=== PATIENT | male | born 1980 | race Caucasian/White ===

== ENCOUNTER 2017-03-28 12:30 | Outpatient (CLI) | payer MEDICAID | END 2017-03-28 12:31 | disposition home or self-care (01) | LOC: LAB 12:30 | PROVIDERS: ATTEND Pathology Blood Banking & Transfusion Medicine | DX: Z01.89 Encounter for other specified special examinations (principal) | CPT/HCPCS: 36415 ==

== ENCOUNTER 2017-09-30 21:42 | Emergency (ER) | payer MEDICAID ==
[2017-09-30] MEDS ORDERED: FAMOTIDINE 20 MG/50 ML 50 ML IV ONE (22:10)
[2017-09-30] MEDS ORDERED: SODIUM CHLORIDE 0.9% 1,000 ML IV ONE (22:10)
[2017-09-30 22:11] LABS: BASOPHILS % (AUTO) 0.5 %; HGB - HEMOGLOBIN 16.3 g/dL (14.0-18.0); LYMPHOCYTES # (AUTO) 1.7 10^3/uL (1.5-3.5); LYMPHOCYTES % (AUTO) 41.3 %; MEAN CORPUSCULAR HEMOGLOBIN 31.5 pg (27.0-31.0); MEAN CORPUSCULAR HGB CONC 33.3 g/dL (32.0-36.0); MEAN CORPUSCULAR VOLUME 94.4 fL (80.0-94.0); MEAN PLATELET VOLUME 7.7 fL (7.4-11.4); MONOCYTES # (AUTO) 0.3 10^3/uL (0.0-1.0); MONOCYTES % (AUTO) 8.7 %; NEUTROPHILS % (AUTO) 49.5 %; PLT - PLATELET COUNT 159 10^3/uL (130-450); RED BLOOD COUNT 5.18 10^6/uL (4.70-6.10); RED CELL DISTRIBUTION WIDTH 15.4 % (12.0-15.0)
[2017-09-30 22:24] LABS: INR 0.8 (0.8-1.2); PT - PROTHROMBIN TIME 9.6 secs (9.9-12.6)
[2017-09-30 22:29] LABS: ALBUMIN 4.2 g/dL (3.2-5.5); ALBUMIN/GLOBULIN RATIO 1.6 (1.0-2.2); BILIRUBIN,TOTAL 1.2 mg/dL (0.2-1.0); CALCIUM 8.3 mg/dL (8.5-10.3); CREATININE 0.9 mg/dL (0.6-1.2); TOTAL PROTEIN 6.8 g/dL (6.7-8.2)
--- NOTE | 2017-09-30 22:31 | ED Physician Documentation ---
PD HPI GI BLEED - Stated complaint Stated Complaint: MALE - Chief complaint Chief Complaint: Abd Pain - History obtained from History obtained from: Patient - History of Present Illness Timing - onset: Yesterday Timing - details: Gradual onset Associated symptoms: Hematemesis, Black/tarry stool Similar symptoms before: Has not had sx before - Additional information Additional information: c/o 1-2 days of blood in vomitus as well as black stools. he says he is starting to withdraw from alcohol; he is a heavy, regular drinker and cannot remember the last sober day he has had. says he has never had upper endoscopy. denies pain. Review of Systems Cardiac: reports: Reviewed and negative Respiratory: reports: Reviewed and negative GI: reports: Vomiting, Hematemesis, Bloody / black stool. denies: Abdominal Pain, Nausea PD PAST MEDICAL HISTORY - Past Medical History Past Medical History: Yes Psych: Anxiety, Panic attacks - Past Surgical History Past Surgical History: Yes General: Appendectomy Ortho: Other - Present Medications Home Medications: Ambulatory Orders Medication Instructions Recorded Confirmed Quetiapine Fumarate [Quetiapine 10/01/17 Fumarate] chlordiazePOXIDE [Librium] See Taper PO Q6H #15 capsule 10/01/17 traZODone [Desyrel] 100 mg PO DAILY 10/01/17 10/01/17 - Allergies Allergies/Adverse Reactions: Allergies Allergy/AdvReac Type Severity Reaction Status Date / Time No Known Drug Allergies Allergy Verified 09/30/17 21:49 - Social History Does the pt smoke?: Yes Smoking Status: Current every day smoker Does the pt drink ETOH?: Yes Does the pt have substance abuse?: Yes Substance Use and Type: Cocaine/Crack, Heroin - Immunizations Immunizations are current?: Yes - POLST Patient has POLST: No PD ED PE NORMAL - Vitals Vital signs reviewed: Yes - General General: Alert and oriented X 3, No acute distress, Well developed/nourished - HEENT HEENT: Moist mucous membranes - Cardiac Cardiac: RRR, No murmur - Respiratory Respiratory: No respiratory distress, Clear bilaterally - Abdomen Abdomen: Soft, Non tender - Derm Derm: Normal color, Warm and dry Results - Vitals Vitals: Vital Signs - 24 hr 09/30/17 09/30/17 10/01/17 21:44 23:31 00:42 Temperature 36.6 C Heart Rate 146 H 88 120 H Respiratory 28 H 18 18 Rate Blood Pressure 115/82 H 128/95 H O2 Saturation 99 97 10/01/17 07:46 Temperature 36.3 C L Heart Rate 102 H Respiratory 15 Rate Blood Pressure 112/83 H O2 Saturation 96 Oxygen O2 Source Room air - Labs Labs: Laboratory Tests 09/30/17 09/30/17 09/30/17 22:01 22:01 22:07 WBC 4.0 L RBC 5.18 Hgb 16.3 Hct 48.9 MCV 94.4 H MCH 31.5 H MCHC 33.3 RDW 15.4 H Plt Count 159 MPV 7.7 Neut # 2.0 Lymph # 1.7 [place] # 0.3 Eos # 0.0 Baso # 0.0 Absolute Nucleated RBC 0.00 Nucleated RBC % 0.1 PT 9.6 L INR 0.8 APTT 25.7 Sodium 137 Potassium 3.5 Chloride 95 L Carbon Dioxide 26 Anion Gap 16.0 H BUN 13 Creatinine 0.9 Estimated GFR (MDRD) 94 Glucose 191 H Calcium 8.3 L Total Bilirubin 1.2 H AST 360 H ALT 212 H Alkaline Phosphatase 121 Total Protein 6.8 Albumin 4.2 Globulin 2.6 Albumin/Globulin Ratio 1.6 Ethyl Alcohol 484.9 Blood Type Antibody Screen 09/30/17 22:20 WBC RBC Hgb Hct MCV MCH MCHC RDW Plt Count MPV Neut # Lymph # [place] # Eos # Baso # Absolute Nucleated RBC Nucleated RBC % PT INR APTT Sodium Potassium Chloride Carbon Dioxide Anion Gap BUN Creatinine Estimated GFR (MDRD) Glucose Calcium Total Bilirubin AST ALT Alkaline Phosphatase Total Protein Albumin Globulin Albumin/Globulin Ratio Ethyl Alcohol Blood Type A POSITIVE Antibody Screen NEGATIVE PD MEDICAL DECISION MAKING - ED course Complexity details: reviewed old records, reviewed results, re-evaluated patient , considered differential, d/w patient ED course: patient is awake and alert with mildly slurred speech on presentation despite etoh level of 485. He reports blood in vomitus and tar-like stool, although he had no episodes of emesis or bloody/black stool during ED stay. He seemed chiefly concerned regarding alcohol withdrawal. He was given IV fluids and repeat doses of ativan and then given dose of librium. Also given dose of gabapentin, as he says he takes this TID. The benzodiazepines effectively controlled his tremulousness (which was never more than mild during ED stay) as well as his anxiety. He was ambulating in ED without difficulty. He requested placement at rehab for alcoholism, and thus held until AM for SW consult. SW evaluated patient in AM and provided options for rehab. Departure - Departure Clinical Impression: Alcohol abuse, Alcohol withdrawal, Alcoholic gastritis Condition: Good Instructions: ED Withdrawal Alcohol, ED Gastritis Follow-Up: [facility] [Provider Group] [facility] [Provider Group] Prescriptions: chlordiazePOXIDE [Librium] See Taper PO Q6H #15 capsule
[2017-09-30] MEDS ORDERED: LORazepam 2 MG/ML VIAL IVP STA (23:21)
[2017-09-30] MEDS ORDERED: SODIUM CHLORIDE 0.9% 1,000 ML IV STA (23:52)
[2017-10-01] MEDS ORDERED: LORazepam 2 MG/ML VIAL IVP STA ×2 (00:21→02:59)
[2017-10-01] MEDS ORDERED: LORazepam 0.5 MG TABLET PO STA ×2 (03:02→12:33)
[2017-10-01] MEDS ORDERED: QUEtiapine 100 MG TABLET PO STA (03:12)
[2017-10-01] MEDS ORDERED: chlordiazePOXIDE 25 MG CAPSULE PO STA ×4 (03:44→14:31)
--- NOTE | 2017-10-01 12:53 | ED Physician Documentation ---
History of Present Illness - Stated complaint Stated Complaint: MALE - Chief complaint Chief Complaint: Abd Pain PD PAST MEDICAL HISTORY - Past Medical History Past Medical History: Yes Psych: Anxiety, Panic attacks - Past Surgical History Past Surgical History: Yes General: Appendectomy Ortho: Other - Present Medications Home Medications: Ambulatory Orders Medication Instructions Recorded Confirmed Quetiapine Fumarate [Quetiapine 10/01/17 Fumarate] Sucralfate 1 gm PO ACHS #120 tablet 10/01/17 chlordiazePOXIDE [Librium] See Taper PO Q6H #15 capsule 10/01/17 raNITIdine [Zantac] 150 mg PO BID #60 tablet 10/01/17 traZODone [Desyrel] 100 mg PO DAILY 10/01/17 10/01/17 - Allergies Allergies/Adverse Reactions: Allergies Allergy/AdvReac Type Severity Reaction Status Date / Time No Known Drug Allergies Allergy Verified 09/30/17 21:49 - Social History Does the pt smoke?: Yes Smoking Status: Current every day smoker Does the pt drink ETOH?: Yes Does the pt have substance abuse?: Yes Substance Use and Type: Cocaine/Crack, Heroin - Immunizations Immunizations are current?: Yes - POLST Patient has POLST: No Results - Vitals Vitals: Vital Signs - 24 hr 09/30/17 09/30/17 10/01/17 21:44 23:31 00:42 Temperature 36.6 C Heart Rate 146 H 88 120 H Respiratory 28 H 18 18 Rate Blood Pressure 115/82 H 128/95 H O2 Saturation 99 97 10/01/17 10/01/17 10/01/17 07:46 10:20 13:14 Temperature 36.3 C L 37.3 C 37.1 C Heart Rate 102 H 118 H 124 H Respiratory 15 16 20 Rate Blood Pressure 112/83 H 126/98 H 117/81 H O2 Saturation 96 99 97 Oxygen O2 Source Room air - Labs Labs: Laboratory Tests 09/30/17 09/30/17 09/30/17 22:01 22:01 22:07 WBC 4.0 L RBC 5.18 Hgb 16.3 Hct 48.9 MCV 94.4 H MCH 31.5 H MCHC 33.3 RDW 15.4 H Plt Count 159 MPV 7.7 Neut # 2.0 Lymph # 1.7 [place] # 0.3 Eos # 0.0 Baso # 0.0 Absolute Nucleated RBC 0.00 Nucleated RBC % 0.1 PT 9.6 L INR 0.8 APTT 25.7 Sodium 137 Potassium 3.5 Chloride 95 L Carbon Dioxide 26 Anion Gap 16.0 H BUN 13 Creatinine 0.9 Estimated GFR (MDRD) 94 Glucose 191 H Calcium 8.3 L Total Bilirubin 1.2 H AST 360 H ALT 212 H Alkaline Phosphatase 121 Total Protein 6.8 Albumin 4.2 Globulin 2.6 Albumin/Globulin Ratio 1.6 Ethyl Alcohol 484.9 Blood Type Antibody Screen 09/30/17 10/01/17 10/01/17 22:20 13:06 13:06 WBC RBC Hgb 13.7 L Hct MCV MCH MCHC RDW Plt Count MPV Neut # Lymph # [place] # Eos # Baso # Absolute Nucleated RBC Nucleated RBC % PT INR APTT Sodium Potassium Chloride Carbon Dioxide Anion Gap BUN Creatinine Estimated GFR (MDRD) Glucose Calcium Total Bilirubin AST ALT Alkaline Phosphatase Total Protein Albumin Globulin Albumin/Globulin Ratio Ethyl Alcohol 38.3 Blood Type A POSITIVE Antibody Screen NEGATIVE PD MEDICAL DECISION MAKING - ED course ED course: assumed care 930 AM pt seen last night by Dr Becker for EtOH intoxication and report of vomiting blood and black stool was evaluated and hemodynamically stable and felt to have alcoholic gastritis and was to be dced with referral for a scope - per Dr Becker no known hx varices pt wanted to be enrolled in detox so turned over to me pending SW assist place in detox while waiting on SW pt has become progressively more tremulous and required librium has secured a bed for pt but they request a rpt BA and more info re GIB - ordered a BA and rpt HGB BA down as expected hgb dropped as well so i did a rectal exam as that was not done earlier - explained to pt reason for exam and he agreed - brown stool only trace occult blood + QC passed - I talked with pt about need for endoscopy to eval for gastritis PUD and varices and he verbalizes an understanding will rx zantac and carafate as well [place] is dc home but really pt is going to detox by taxi arranged by Departure - Departure Disposition: 01 Home, Self Care Clinical Impression: Alcohol abuse Alcohol withdrawal Qualifiers: Complication of substance-induced condition: uncomplicated Qualified Code(s): F10.230 - Alcohol dependence with withdrawal, uncomplicated Alcoholic gastritis Qualifiers: Chronicity: acute Gastritis bleeding: presence of bleeding unspecified Qualified Code(s): K29.20 - Alcoholic gastritis without bleeding Condition: Good Instructions: ED Withdrawal Alcohol, ED Gastritis Follow-Up: [facility] [Provider Group] [facility] [Provider Group] Tyson Mckay MD [Provider Admit Priv/Credential] - Prescriptions: chlordiazePOXIDE [Librium] See Taper PO Q6H #15 capsule raNITIdine [Zantac] 150 mg PO BID #60 tablet Sucralfate 1 gm PO ACHS #120 tablet Comments: As we discussed you need to get a scope of your upper GI tract to see if you have varices or an ulcer - please call the surgical office to set this up when you get out of detox - avoid NSAIDs such as motrin and alcohol
[2017-10-01] MEDS ORDERED: ONDANSETRON ODT 4 MG TABLET TL STA (14:31)
[2017-10-01 15:11] VITALS: BP 108/88
== END 2017-10-01 15:27 | disposition home or self-care (01) ==
LOC: ED 21:42
DX: F10.239 Alcohol dependence with withdrawal, unspecified (principal); K29.20 Alcoholic gastritis without bleeding; Y90.8 Blood alcohol level of 240 mg/100 ml or more; F17.200 Nicotine dependence, unspecified, uncomplicated; R00.0 Tachycardia, unspecified; F41.9 Anxiety disorder, unspecified
CPT/HCPCS: 36415; 80053; 80320; 85018; 85025; 85610; 85730; 86850; 86900; 86901; 96361; 96365; 96375; 96376; 99284; A9270; J2060; Q0162

== ENCOUNTER 2018-12-24 15:28 | Emergency (ER) | payer MEDICAID ==
[2018-12-24 15:37] VITALS: BP 124/84
--- NOTE | 2018-12-24 16:04 | ED Physician Documentation ---
History of Present Illness - Stated complaint Stated Complaint: CHEST PX - Chief complaint Chief Complaint: Resp - Additonal information Additional information: This is a 38-year-old male with a history of hypertension, past substance abuse currently on methadone, who presents with chest pain. Patient states that he began having some right-sided upper chest pain 3 days ago, it is sharp and worse when he presses in the area of his chest. He has a chronic Cough that he attributes to smoking, no change to this. No hemoptysis, Leg swelling, history of blood clots. No history of CA, or other cardiac problems. He denies IV drug use, he states he has been clean from drugs for almost 1 year. Patient states his chest pain feels similar to pleurisy. He denies specific trauma to his chest preceding this pain. No fever. Review of Systems Constitutional: denies: Fever Cardiac: reports: Chest pain / pressure Respiratory: reports: Cough GI: denies: Abdominal Pain Skin: denies: Rash PD PAST MEDICAL HISTORY - Past Medical History Psych: Anxiety, Panic attacks - Past Surgical History Past Surgical History: Yes General: Appendectomy Ortho: Other - Present Medications Home Medications: Ambulatory Orders Medication Instructions Recorded Confirmed Quetiapine Fumarate 10/01/17 Sucralfate 1 gm PO ACHS #120 tablet 10/01/17 chlordiazePOXIDE [Librium] See Taper PO Q6H #15 capsule 10/01/17 raNITIdine [Zantac] 150 mg PO BID #60 tablet 10/01/17 traZODone [Desyrel] 100 mg PO DAILY 10/01/17 10/01/17 Acetaminophen 650 mg PO Q6HR #30 tablet 12/24/18 Ibuprofen 600 mg PO Q6H PRN #30 tablet 12/24/18 Methocarbamol [Robaxin-750] 750 mg PO TID PRN #10 tablet 12/24/18 - Allergies Allergies/Adverse Reactions: Allergies Allergy/AdvReac Type Severity Reaction Status Date / Time No Known Drug Allergies Allergy Verified 09/30/17 21:49 - Social History Does the pt smoke?: Yes Smoking Status: Current every day smoker Does the pt drink ETOH?: Yes Does the pt have substance abuse?: Yes - Immunizations Immunizations are current?: Yes - POLST Patient has POLST: No PD ED PE NORMAL - Vitals Vital signs reviewed: Yes - General General: Alert and oriented X 3, No acute distress - HEENT HEENT: Atraumatic - Neck Neck: Supple, no meningeal sign - Cardiac Cardiac: RRR, No murmur - Respiratory Respiratory: No respiratory distress, Clear bilaterally, Other (Focal area of tenderness over the right anterior chest. No rash overlying lesions) - Abdomen Abdomen: Soft, Non tender, Non distended - Derm Derm: Warm and dry - Extremities Extremities: No deformity - Neuro Neuro: Alert and oriented X 3 - Psych Psych: Normal mood, Normal affect Results - Vitals Vitals: Vital Signs - 24 hr 12/24/18 15:31 Temperature 36.6 C Heart Rate 57 L Respiratory 16 Rate Blood Pressure 124/84 H O2 Saturation 100 Oxygen O2 Source Room air - EKG (time done) 15:41 Other comments: Other comments (rate 58, rhythm sinus, no ST segment chagnes, intervals within normal limits., axis normal.) - Rads (name of study) CXR Radiology: Other (No focal consolidaiton or acute abnormality) PD MEDICAL DECISION MAKING - ED course Complexity details: considered differential (PE, PNA, pneumothorax, ACS, muscle strain) ED course: Pt has reproducible right sided chest tenderness, his EKG shows no signs of acute ischemia or dysrhytmia, and his history makes ACS extremely unlikely. PE was considered, I have a low clinical suspicion and he is PERC negative, no further workup for PE indicated today. CXR shows no acute abnormality. I discussed I do not see an emergent cause of his discomfort, he thinks this is musculoskeletal and I agree this is likely. We will treat with ibuprofen, tylenol, and he may trial methocarbamol if these medications are not sufficient. I did discuss the importance of PCP follow up and return to the ED with SOB, changing or worsening chest pain, or any other concerning symptoms. Pt agreed and was discharged. Departure - Departure Disposition: 01 Home, Self Care Clinical Impression: Chest pain Qualifiers: Chest pain type: unspecified Qualified Code(s): R07.9 - Chest pain, unspecified Condition: Good Instructions: ED Chest Pain Atypical Unkn Cause Follow-Up: Your,PCP [Other] Prescriptions: Acetaminophen 650 mg PO Q6HR #30 tablet Ibuprofen 600 mg PO Q6H PRN #30 tablet PRN Reason: Pain Methocarbamol [Robaxin-750] 750 mg PO TID PRN #10 tablet PRN Reason: Pain Comments: You were seen today for chest pain, I think this is likely due to strain/irritation of your chest wall, do not see signs of abnormalities onyour chest x-ray or your EKG. If you develop worsening chest pain, changing chest pain, shortness of breath, fever, or blood with your cough, return to the emergency department immediately. Please follow-up with your primary care provider. Discharge Date/Time: 12/24/18 17:14
--- NOTE | 2018-12-24 16:44 | XRAY Report ---
Reason: cough Procedure Date: 12/24/2018 Accession Number: [id number] / [id number] Procedure: XR - Chest 2 View X-Ray CPT Code: 60017 FULL RESULT: EXAM: CHEST RADIOGRAPHY EXAM DATE: 12/24/2018 04:36 PM. CLINICAL HISTORY: Cough. COMPARISON: CHEST 2 VIEW PA/LAT 04/04/2016 8:55 PM. TECHNIQUE: 2 views. FINDINGS: Lungs/Pleura: No focal opacities evident. No pleural effusion. No pneumothorax. Normal volumes. Mediastinum: Heart and mediastinal contours are unremarkable. Other: None. IMPRESSION: No focal consolidation. RADIA
== END 2018-12-24 17:14 | disposition home or self-care (01) ==
LOC: ED 15:28
DX: R07.9 Chest pain, unspecified (principal); F17.200 Nicotine dependence, unspecified, uncomplicated
CPT/HCPCS: 71046; 93005; 99283; 99284

== ENCOUNTER 2019-04-07 21:03 | Emergency (ER) | payer MEDICAID ==
--- NOTE | 2019-04-07 22:17 | XRAY Report ---
Reason: rapid heart rate Procedure Date: 04/07/2019 Accession Number: [id number] / [id number] Procedure: XR - Chest 1 View X-Ray CPT Code: 69061 Final Report FULL RESULT: EXAM: CHEST RADIOGRAPHY EXAM DATE: 04/07/2019 09:43 PM. CLINICAL HISTORY: Rapid heart rate. COMPARISON: CHEST 2 VIEW 12/24/2018 4:24 PM. TECHNIQUE: 1 view. FINDINGS: Lungs/Pleura: No alveolar consolidation or pleural effusion seen. No pneumothorax. Mediastinum: Within exam limitations, the cardiomediastinal contour is normal. Other: None. IMPRESSION: 1. No acute abnormality seen in the chest. RADIA
[2019-04-07 22:28] LABS: BASOPHILS % (AUTO) 0.3 %; EOSINOPHILS % (AUTO) 0.5 %; HGB - HEMOGLOBIN 12.8 g/dL (14.0-18.0); LYMPHOCYTES # (AUTO) 1.8 10^3/uL (1.5-3.5); LYMPHOCYTES % (AUTO) 28.1 %; MEAN CORPUSCULAR HEMOGLOBIN 30.4 pg (27.0-31.0); MEAN CORPUSCULAR HGB CONC 33.8 g/dL (32.0-36.0); MEAN PLATELET VOLUME 9.3 fL (7.4-11.4); MONOCYTES # (AUTO) 0.7 10^3/uL (0.0-1.0); MONOCYTES % (AUTO) 11.1 %; NEUTROPHILS # (AUTO) 3.8 10^3/uL (1.5-6.6); NEUTROPHILS % (AUTO) 59.5 %; PLT - PLATELET COUNT 278 10^3/uL (130-450); RED BLOOD COUNT 4.21 10^6/uL (4.70-6.10); RED CELL DISTRIBUTION WIDTH 14.5 % (12.0-15.0); WHITE BLOOD COUNT 6.4 x10^3/uL (4.8-10.8)
[2019-04-07 22:46] LABS: ALBUMIN 4.1 g/dL (3.2-5.5); ALBUMIN/GLOBULIN RATIO 1.4 (1.0-2.2); BILIRUBIN,TOTAL 0.7 mg/dL (0.2-1.0); CALCIUM 9.7 mg/dL (8.5-10.3); CREATININE 0.9 mg/dL (0.6-1.2)
[2019-04-08] MEDS ORDERED: CLINDAMYCIN 150 MG CAPSULE PO STA
[2019-04-08] MEDS ORDERED: SODIUM CHLORIDE 0.9% 1,000 ML IV ONE
[2019-04-08] MEDS ORDERED: METOPROLOL 5 MG/5 ML VIAL IVP STA
[2019-04-08] MEDS ORDERED: KETOROLAC 15 MG/ML VIAL IVP STA (00:01)
--- NOTE | 2019-04-08 00:35 | ED Physician Documentation ---
PD HPI HEENT - Stated complaint Stated Complaint: FAST HEART/GUM PX - Chief complaint Chief Complaint: Cardiac - History obtained from History obtained from: Patient - History of Present Illness Timing - onset: How many days ago (few) Timing - duration: Days (few) Timing - details: Gradual onset, Still present Location: Tooth (right upper gum with swelling and some purulent drainage for few days) Associated symptoms: No: Fever, Facial swelling, Cough Recently seen: Clinic (He was seen in the clinic today presenting with the complaint of the gum's drainage and pain. He was noted to be tachycardic and was referred to the ER for concern of sepsis or worse infection. He was afebrile. He did not appear ill. He had been seen about a week and a half ago for complaints of lightheadedness. He had been on propranolol 80 mg daily for high blood pressure. He states he had stopped drinking and had been eating well over the last few months. He had lost some weight as well. The propranolol was discontinued. The patient had noticed his heart rate a little bit faster at times when he was doing activity. It was more noticeable today when he went in to be seen at the clinic today.) Review of Systems Constitutional: denies: Fever, Chills, Myalgias Nose: denies: Rhinorrhea / runny nose, Congestion Throat: reports: Dental pain / toothache (right upper tooth with gum drainage, had had prior root canal to it but then did dnot get cap put on/ finish of the care due to cost.). denies: Sore throat Cardiac: denies: Chest pain / pressure, Palpitations Respiratory: denies: Dyspnea, Cough GI: denies: Abdominal Pain, Vomiting, Diarrhea Skin: denies: Rash, Lesions PD PAST MEDICAL HISTORY - Past Medical History Past Medical History: Yes Cardiovascular: None Respiratory: None Neuro: None Endocrine/Autoimmune: None GI: None : None Psych: Anxiety, Panic attacks - Past Surgical History Past Surgical History: Yes General: Appendectomy Ortho: Other - Present Medications Home Medications: Ambulatory Orders Medication Instructions Recorded Confirmed Quetiapine Fumarate 10/01/17 Sucralfate 1 gm PO ACHS #120 tablet 10/01/17 chlordiazePOXIDE [Librium] See Taper PO Q6H #15 capsule 10/01/17 raNITIdine [Zantac] 150 mg PO BID #60 tablet 10/01/17 traZODone [Desyrel] 100 mg PO DAILY 10/01/17 10/01/17 Acetaminophen 650 mg PO Q6HR #30 tablet 12/24/18 Ibuprofen 600 mg PO Q6H PRN #30 tablet 12/24/18 Methocarbamol [Robaxin-750] 750 mg PO TID PRN #10 tablet 12/24/18 Clindamycin HCl [Clindamycin 300MG 300 mg PO TID #21 capsule 04/08/19 CAP] Naproxen 375 mg PO BID #20 tablet 04/08/19 Propranolol HCl 10 mg PO DAILY #30 tablet 04/08/19 - Allergies Allergies/Adverse Reactions: Allergies Allergy/AdvReac Type Severity Reaction Status Date / Time No Known Drug Allergies Allergy Verified 04/07/19 21:27 - Living Situation Living Situation: reports: Alone Living Arrangement: reports: At home (He states he does drink a lot of energy drinks daily.) - Social History Does the pt smoke?: Yes Smoking Status: Current every day smoker Does the pt drink ETOH?: Yes ETOH Use: Wine, Beer, Liquor Does the pt have substance abuse?: No - Immunizations Immunizations are current?: Yes - POLST Patient has POLST: No PD ED PE NORMAL - Vitals Vital signs reviewed: Yes (Tachycardic but normal blood pressure and afebrile) - General General: Alert and oriented X 3, No acute distress, Well developed/nourished - HEENT HEENT: Ears normal, Moist mucous membranes, Pharynx benign. No: Dentition benign (The right upper tooth shows decay and a central hole consistent with prior root canal that was incomplete. There is some redness and swelling of the gum with pointing whiteness and mild drainage. There is no residual fluctuance. There is no redness nor swelling noted on the face per se.) - Neck Neck: Supple, no meningeal sign, No adenopathy - Cardiac Cardiac: No murmur, No rub. No: RRR (Regular but tachycardic and it slows down to 130 and then 110 with him just resting.) - Respiratory Respiratory: No respiratory distress, Clear bilaterally - Abdomen Abdomen: Soft, Non tender - Back Back: No CVA TTP - Derm Derm: Normal color, Warm and dry - Extremities Extremities: No tenderness to palpate, Normal ROM s pain, No edema, No calf tenderness / cord - Neuro Neuro: Alert and oriented X 3, No motor deficit, Normal speech Results - Vitals Vitals: Vital Signs - 24 hr 04/07/19 04/07/19 04/07/19 21:27 22:00 22:28 Temperature 37 C Heart Rate 155 H 126 H 120 H Respiratory 17 15 12 Rate Blood Pressure 117/84 H 120/94 H 110/83 H O2 Saturation 100 100 99 04/07/19 04/08/19 04/08/19 23:18 00:26 01:11 Temperature 36.8 C Heart Rate 102 H 85 84 Respiratory 12 23 18 Rate Blood Pressure 103/83 H 108/93 H 114/87 H O2 Saturation 97 100 100 Oxygen O2 Source Room air - Labs Labs: Laboratory Tests 04/07/19 04/07/19 04/07/19 21:35 22:01 22:01 WBC 6.4 RBC 4.21 L Hgb 12.8 L Hct 37.9 L MCV 90.0 MCH 30.4 MCHC 33.8 RDW 14.5 Plt Count 278 MPV 9.3 Neut # (Auto) 3.8 Lymph # (Auto) 1.8 [place] # (Auto) 0.7 Eos # (Auto) 0.0 Baso # (Auto) 0.0 Absolute Nucleated RBC 0.00 Nucleated RBC % 0.0 ESR 12 Sodium 140 Potassium 3.8 Chloride 106 Carbon Dioxide 25 Anion Gap 9.0 BUN 10 Creatinine 0.9 Estimated GFR (MDRD) 93 Glucose 136 H Lactic Acid Calcium 9.7 Total Bilirubin 0.7 AST 22 ALT 17 Alkaline Phosphatase 95 Total Protein 7.0 Albumin 4.1 Globulin 2.9 Albumin/Globulin Ratio 1.4 Lipase 46 04/07/19 23:35 WBC RBC Hgb Hct MCV MCH MCHC RDW Plt Count MPV Neut # (Auto) Lymph # (Auto) [place] # (Auto) Eos # (Auto) Baso # (Auto) Absolute Nucleated RBC Nucleated RBC % ESR Sodium Potassium Chloride Carbon Dioxide Anion Gap BUN Creatinine Estimated GFR (MDRD) Glucose Lactic Acid 0.7 Calcium Total Bilirubin AST ALT Alkaline Phosphatase Total Protein Albumin Globulin Albumin/Globulin Ratio Lipase PD MEDICAL DECISION MAKING - ED course Complexity details: considered differential (He looks well and has normal temperature and blood pressure and no blood markers to suggest sepsis or significant infection. Heart sounds are normal. I think his tachycardia is from the energy drinks he takes and having discontinued propranolol at the direction of his primary care a week and a half ago. There may be some elevation of heart rate related to the current infection and the discomfort of it.), d/w patient Departure - Departure Disposition: 01 Home, Self Care Clinical Impression: Dental infection, Tachycardia Condition: Stable Record reviewed to determine appropriate education?: Yes Instructions: ED Abscess Dental, ED Tachycardia Pat PSVT Prescriptions: Clindamycin HCl [Clindamycin 300MG CAP] 300 mg PO TID #21 capsule Naproxen 375 mg PO BID #20 tablet Propranolol HCl 10 mg PO DAILY #30 tablet Comments: Stay well-hydrated. Clindamycin as directed for the dental infection. Use some antiseptic mouth rinse periodically. You can use naproxen anti-inflammatory twice daily for pain and swelling. Your blood tests did not suggest serious infection. Your fast heart rate may be relate to hydration and could also be some response to infection. However it may also be augmented by the energy drinks with the caffeine in it. He may still have a bit of a fast heart rate response from being off the propranolol though this is probably a little bit longer than expected. You could resume the propranolol again but add a very low-dose of just 10 mg daily and continue that for the next couple of weeks. Follow-up with your primary care if your gum infection is not improved over the next several days or so. Discharge Date/Time: 04/08/19 01:14
[2019-04-08 01:13] VITALS: BP 114/87
== END 2019-04-08 01:14 | disposition home or self-care (01) ==
LOC: ED 21:03
DX: K04.7 Periapical abscess without sinus (principal); K02.9 Dental caries, unspecified; R00.0 Tachycardia, unspecified; F17.200 Nicotine dependence, unspecified, uncomplicated
CPT/HCPCS: 36415; 71045; 80053; 83605; 83690; 85025; 85651; 93005; 96361; 96374; 96375; 99284; A9270

== ENCOUNTER 2019-06-30 10:08 | Outpatient (CLI) | payer MEDICAID ==
--- NOTE | 2019-07-01 10:03 | XRAY Report ---
Reason: STIFFNESS OF UNSPECIFIED HAND Procedure Date: 06/30/2019 Accession Number: [id number] / [id number] Procedure: XR - Hand 3 View RT CPT Code: Final Report FULL RESULT: EXAM: RIGHT HAND RADIOGRAPHY EXAM DATE: 06/30/2019 10:48 AM. CLINICAL HISTORY: STIFFNESS OF RIGHT HAND. COMPARISON: None. TECHNIQUE: 3 views. FINDINGS: Bones: Normal. No fractures or bone lesions. Joints: Normal. No subluxations. Soft Tissues: Normal. No soft tissue swelling. IMPRESSION: Normal hand radiography. RADIA
== END 2019-06-30 10:09 | disposition home or self-care (01) ==
LOC: DI 10:08
DX: M25.641 Stiffness of right hand, not elsewhere classified (principal); M79.641 Pain in right hand

== ENCOUNTER 2019-11-03 19:31 | Emergency (ER) | payer MEDICAID ==
--- NOTE | 2019-11-03 20:07 | ED Physician Documentation ---
PD HPI OVERDOSE - Stated complaint Stated Complaint: OD - Chief complaint Chief Complaint: MHE - History obtained from History obtained from: Patient, Friend, EMS - History of Present Illness Timing - onset: Today Subtance(s) ingested: Other (The patient was found by his roommates to be somnolent and hard to arouse. They are concerned he had taken extra of his medicines. The patient stated to EMS and here that he had taken just his usual medications but had taken them all this afternoon and attempt to sleep. Denies overdose.) Associated symptoms: Decreased responsiveness. No: Chest pain, Abdominal pain, Dyspnea Contributing factors: Other (he had run out of his usual Flexeril 4 days ago, that he had been taking regularly for long time for spasms due to prior [place]. He had not gotten refill from PCP as yet.). No: Depresssed, Suicidal Similar symptoms before: Has not had sx before Recently seen: Not recently seen Review of Systems Constitutional: denies: Fever, Chills, Myalgias Nose: denies: Rhinorrhea / runny nose, Congestion Throat: denies: Sore throat Respiratory: denies: Cough GI: reports: Nausea. denies: Abdominal Pain, Vomiting, Diarrhea : denies: Dysuria Neurologic: reports: Other (feeling lightheaded and somewhat confused/sleepy today. Having increased spasms from not having usual Flexeril.) Psychiatric: reports: Anxiety (chronic). denies: Depressed, Suicidal, Insomnia PD PAST MEDICAL HISTORY - Past Medical History Past Medical History: Yes Cardiovascular: None Respiratory: None Neuro: None Endocrine/Autoimmune: None GI: None : None Psych: Anxiety, Panic attacks - Past Surgical History Past Surgical History: Yes General: Appendectomy Ortho: Other - Present Medications Home Medications: Ambulatory Orders Medication Instructions Recorded Confirmed Quetiapine Fumarate 10/01/17 Sucralfate 1 gm PO ACHS #120 tablet 10/01/17 chlordiazePOXIDE [Librium] See Taper PO Q6H #15 capsule 10/01/17 raNITIdine [Zantac] 150 mg PO BID #60 tablet 10/01/17 traZODone [Desyrel] 100 mg PO DAILY 10/01/17 10/01/17 Acetaminophen 650 mg PO Q6HR #30 tablet 12/24/18 Ibuprofen 600 mg PO Q6H PRN #30 tablet 12/24/18 Methocarbamol [Robaxin-750] 750 mg PO TID PRN #10 tablet 12/24/18 Clindamycin HCl [Clindamycin 300MG 300 mg PO TID #21 capsule 04/08/19 CAP] Naproxen 375 mg PO BID #20 tablet 04/08/19 Propranolol HCl 10 mg PO DAILY #30 tablet 04/08/19 - Allergies Allergies/Adverse Reactions: Allergies Allergy/AdvReac Type Severity Reaction Status Date / Time No Known Drug Allergies Allergy Verified 11/03/19 19:47 - Social History Does the pt smoke?: Yes Smoking Status: Current every day smoker Does the pt drink ETOH?: Yes Does the pt have substance abuse?: No - Immunizations Immunizations are current?: Yes - POLST Patient has POLST: No PD ED PE NORMAL - Vitals Vital signs reviewed: Yes - General General: Alert and oriented X 3, No acute distress, Well developed/nourished - HEENT HEENT: PERRL, EOMI (no nystagmus), Moist mucous membranes, Pharynx benign - Neck Neck: Supple, no meningeal sign, No adenopathy - Cardiac Cardiac: RRR, No murmur - Respiratory Respiratory: Clear bilaterally - Abdomen Abdomen: Soft, Non tender - Derm Derm: Normal color, Warm and dry - Extremities Extremities: No deformity, Normal ROM s pain, No edema, No calf tenderness / cord - Neuro Neuro: Alert and oriented X 3, clock smith 2-12 intact, No motor deficit, No sensory def icit, Normal speech Eye Opening: Spontaneous Motor: Obeys Commands Verbal: Oriented GCS Score: 15 - Psych Psych: Normal mood Results - Vitals Vitals: Vital Signs - 24 hr 11/03/19 11/03/19 11/03/19 19:44 19:59 20:41 Temperature 36.5 C Heart Rate 72 68 60 Respiratory 16 19 18 Rate Blood Pressure 105/77 92/73 97/75 O2 Saturation 98 99 98 11/03/19 22:29 Temperature 36.5 C Heart Rate 86 Respiratory 12 Rate Blood Pressure 115/81 H O2 Saturation 100 Oxygen O2 Source Room air - Labs Labs: Laboratory Tests 11/03/19 11/03/19 11/03/19 20:33 20:33 20:33 WBC 4.5 L RBC 4.56 L Hgb 14.0 Hct 41.4 L MCV 90.8 MCH 30.7 MCHC 33.8 RDW 13.2 Plt Count 182 MPV 8.9 Neut # (Auto) 1.9 Lymph # (Auto) 2.1 [place] # (Auto) 0.4 Eos # (Auto) 0.1 Baso # (Auto) 0.0 Absolute Nucleated RBC 0.00 Nucleated RBC % 0.0 Sodium 143 Potassium 3.7 Chloride 104 Carbon Dioxide 28 Anion Gap 11.0 BUN 12 Creatinine 1.0 Estimated GFR (MDRD) 82 L Glucose 90 Calcium 8.9 Magnesium 2.1 Total Bilirubin 0.8 AST 21 ALT 21 Alkaline Phosphatase 72 Total Protein 6.4 L Albumin 4.0 Globulin 2.4 Albumin/Globulin Ratio 1.7 Lipase 25 TSH 1.76 Last Dose Date Last Dose Time Salicylates < 6.0 Urine Opiates Screen Ur Oxycodone Screen Urine Methadone Screen Ur Propoxyphene Screen Acetaminophen < 10 L Ur Barbiturates Screen Valproic Acid Ur Tricyclics Screen Ur Phencyclidine Scrn Ur Amphetamine Screen U Methamphetamines Scrn U Benzodiazepines Scrn Urine Cocaine Screen U Cannabinoids Screen Ethyl Alcohol < 5.0 11/03/19 11/03/19 20:33 20:35 WBC RBC Hgb Hct MCV MCH MCHC RDW Plt Count MPV Neut # (Auto) Lymph # (Auto) [place] # (Auto) Eos # (Auto) Baso # (Auto) Absolute Nucleated RBC Nucleated RBC % Sodium Potassium Chloride Carbon Dioxide Anion Gap BUN Creatinine Estimated GFR (MDRD) Glucose Calcium Magnesium Total Bilirubin AST ALT Alkaline Phosphatase Total Protein Albumin Globulin Albumin/Globulin Ratio Lipase TSH Last Dose Date UNKNOWN Last Dose Time UNKNOWN Salicylates Urine Opiates Screen NEGATIVE Ur Oxycodone Screen NEGATIVE Urine Methadone Screen NEGATIVE Ur Propoxyphene Screen NEGATIVE Acetaminophen Ur Barbiturates Screen NEGATIVE Valproic Acid 42.9 Ur Tricyclics Screen NEGATIVE Ur Phencyclidine Scrn NEGATIVE Ur Amphetamine Screen NEGATIVE U Methamphetamines Scrn NEGATIVE U Benzodiazepines Scrn POSITIVE H Urine Cocaine Screen NEGATIVE U Cannabinoids Screen NEGATIVE Ethyl Alcohol PD MEDICAL DECISION MAKING - ED course Complexity details: considered differential (He denies taking extra medicines. He had taken his usual medicines all around the same time rather than through the day in an attempt to sleep. However they are all the same doses except for lacking Flexeril the last 4 days because awaiting refill), d/w patient ED course: He denies overdose or suicidality. He is awake and conversant here. He had been a bit under hydrated through the day so his usual medicines may have had a more pronounced effect. Alternatively in researching on [facility] reference, there is a Flexeril discontinuation syndrome so he may be having some side effects from not having his refill as yet. I wrote him a prescription for short-term for his usual Flexeril. He should continue his other usual medicines but be sure to space them through the day and not altogether and also to ensure that he stays well-hydrated. Departure - Departure Disposition: 01 Home, Self Care Clinical Impression: Medication side effect Altered mental status Qualifiers: Altered mental status type: somnolence Qualified Code(s): R40.0 - Somnolence Condition: Stable Record reviewed to determine appropriate education?: Yes Follow-Up: LOGAN BEAUCHAMP MD [Primary Care Provider] - Comments: Stay well-hydrated. Continue your usual medications perhaps take them at different times of the day and not all together. Follow-up with your primary care if you continue with excess somnolence related to your medicines. Discharge Date/Time: 11/03/19 22:45
[2019-11-03 20:39] LABS: MUDS CUTOFF CONCENTRATIONS CUTOFF CONC BELOW:
[2019-11-03 20:40] LABS: BASOPHILS % (AUTO) 0.2 %; EOSINOPHILS # (AUTO) 0.1 10^3/uL (0.0-0.7); EOSINOPHILS % (AUTO) 1.6 %; LYMPHOCYTES # (AUTO) 2.1 10^3/uL (1.5-3.5); LYMPHOCYTES % (AUTO) 47.2 %; MEAN CORPUSCULAR HEMOGLOBIN 30.7 pg (27.0-31.0); MEAN CORPUSCULAR HGB CONC 33.8 g/dL (32.0-36.0); MEAN CORPUSCULAR VOLUME 90.8 fL (80.0-94.0); MEAN PLATELET VOLUME 8.9 fL (7.4-11.4); MONOCYTES # (AUTO) 0.4 10^3/uL (0.0-1.0); MONOCYTES % (AUTO) 7.8 %; NEUTROPHILS # (AUTO) 1.9 10^3/uL (1.5-6.6); PLT - PLATELET COUNT 182 10^3/uL (130-450); RED BLOOD COUNT 4.56 10^6/uL (4.70-6.10); RED CELL DISTRIBUTION WIDTH 13.2 % (12.0-15.0); WHITE BLOOD COUNT 4.5 x10^3/uL (4.8-10.8)
[2019-11-03 20:51] LABS: AMPHETAMINE SCREEN,URINE NEGATIVE (NEGATIVE); COCAINE SCREEN URINE NEGATIVE (NEGATIVE); METHAMPHETAMINES SCREEN, URINE NEGATIVE (NEGATIVE); OPIATE SCREEN, URINE NEGATIVE (NEGATIVE)
[2019-11-03 20:52] LABS: BENZODIAZEPINES SCREEN, URINE POSITIVE (NEGATIVE); METHADONE SCREEN, URINE NEGATIVE (NEGATIVE); OXYCODONE SCREEN, URINE NEGATIVE (NEGATIVE); PROPOXYPHENE SCREEN, URINE NEGATIVE (NEGATIVE); TRICYCLIC ANTIDEPRESSANT,URINE NEGATIVE (NEGATIVE)
[2019-11-03 20:55] LABS: ACETAMINOPHEN < 10 ug/mL (10-30); ALBUMIN/GLOBULIN RATIO 1.7 (1.0-2.2); ALKALINE PHOSPHATASE 72 IU/L (42-121); ALT ALANINE AMINOTRANSFERASE 21 IU/L (10-60); AST ASPARTATE AMINOTRANSFERASE 21 IU/L (10-42); BILIRUBIN,TOTAL 0.8 mg/dL (0.2-1.0); BUN - BLOOD UREA NITROGEN 12 mg/dL (6-20); CALCIUM 8.9 mg/dL (8.5-10.3); CARBON DIOXIDE - CO2 28 mmol/L (21-32); CHLORIDE 104 mmol/L (101-111); GLUCOSE 90 mg/dL (70-100); LIPASE 25 U/L (22-51); MAGNESIUM 2.1 mg/dL (1.7-2.8); SALICYLATE < 6.0 mg/dL; SODIUM 143 mmol/L (135-145); TOTAL PROTEIN 6.4 g/dL (6.7-8.2)
[2019-11-03 21:35] LABS: VALPROIC ACID (DEPAKOTE) 42.9 ug/mL
[2019-11-03 22:30] VITALS: BP 115/81
== END 2019-11-03 22:45 | disposition home or self-care (01) ==
LOC: EDUNIT# → ED 19:31
DX: R40.0 Somnolence (principal); R42 Dizziness and giddiness; R11.0 Nausea; F17.200 Nicotine dependence, unspecified, uncomplicated
CPT/HCPCS: 36415; 80053; 80164; 80306; 80307; 80320; 80329; 83690; 83735; 84443; 85025; 99283; 99284

== ENCOUNTER 2019-11-03 19:33 | Outpatient (CLI) | payer MEDICAID | END 2019-11-03 19:34 | disposition critical access hospital (66) | LOC: EMS 19:33 | PROVIDERS: ATTEND Surgery | DX: T50.912A Poisoning by multiple unspecified drugs, medicaments and biological substances, intentional self-harm, initial encounter (principal); R46.4 Slowness and poor responsiveness; R53.83 Other fatigue; Y92.009 Unspecified place in unspecified non-institutional (private) residence as the place of occurrence of the external cause | CPT/HCPCS: A0425; A0429; A0999 ==

== ENCOUNTER 2020-09-06 22:04 | Outpatient (CLI) | payer MEDICAID | END 2020-09-06 22:05 | disposition critical access hospital (66) | LOC: EMS 22:04 | DX: R00.0 Tachycardia, unspecified (principal) | CPT/HCPCS: A0425; A0427; A0999 ==

== ENCOUNTER 2020-09-06 22:22 | Emergency (ER) | payer MEDICAID ==
[2020-09-06] MEDS ORDERED: LORazepam 2 MG/ML VIAL IVP STA ×2 (22:32→23:40)
[2020-09-06] MEDS ORDERED: diltiaZEM INJ 5 MG/ML VIAL IVP STA (22:32)
[2020-09-06] MEDS ORDERED: SODIUM CHLORIDE 0.9% 1,000 ML IV STA (22:32)
--- NOTE | 2020-09-06 22:37 | ED Physician Documentation ---
PD HPI CHEST PAIN - Stated complaint Stated Complaint: CP - Chief complaint Chief Complaint: Cardiac - History obtained from History obtained from: Patient, EMS - History of Present Illness Timing - onset: How many minutes ago (30), Today Timing - onset during: Other (he had onset promptly of chest pressure, feeling heart racing and dyspnea/anxious right after taking hit off marijuana cigarette. Denies meth or cocaine. He felt heart racing. Has had it less severe with marijuana before, so does not typically smoke it. Worst symptoms this time. [place] okay prior.) Timing - details: Abrupt onset, Still present (still with feeling of tightness in chest and anxiety. HR does not feel as prominent.) Quality: Tightness, Aching Location: Substernal Radiation: No: Jaw, Neck, Back Improved by: No: Rest Worsened by: Inspiration. No: Palpation Associated symptoms: Shortness of air, Feeling faint / dizzy, Palpitations (felt heart racing and pounding.) Similar symptoms before: No diagnosis (has had similar but less severe symptoms with smoking marijuana couple times in the past.) Recently seen: Not recently seen (no recent change in meds; has not missed meds.) Review of Systems Constitutional: denies: Fever, Chills Nose: denies: Rhinorrhea / runny nose, Congestion Throat: denies: Sore throat Cardiac: reports: Chest pain / pressure, Palpitations. denies: Pedal edema, Calf pain Respiratory: reports: Dyspnea. denies: Cough, Wheezing GI: denies: Abdominal Pain, Nausea, Vomiting, Diarrhea Neurologic: reports: Generalized weakness. denies: Near syncope, Syncope, Altered mental status, Headache Psychiatric: reports: Anxiety. denies: Depressed, Suicidal PD PAST MEDICAL HISTORY - Past Medical History Cardiovascular: None Respiratory: None Neuro: None Endocrine/Autoimmune: None GI: None : None Psych: Anxiety, Bipolar disorder, Panic attacks - Past Surgical History Past Surgical History: Yes General: Appendectomy Ortho: Other - Present Medications Home Medications: Ambulatory Orders Medication Instructions Recorded Confirmed Quetiapine Fumarate 10/01/17 Sucralfate 1 gm PO ACHS #120 tablet 10/01/17 chlordiazePOXIDE [Librium] See Taper PO Q6H #15 capsule 10/01/17 raNITIdine [Zantac] 150 mg PO BID #60 tablet 10/01/17 traZODone [Desyrel] 100 mg PO DAILY 10/01/17 10/01/17 Acetaminophen 650 mg PO Q6HR #30 tablet 12/24/18 Ibuprofen 600 mg PO Q6H PRN #30 tablet 12/24/18 methocarbamoL [Robaxin-750] 750 mg PO TID PRN #10 tablet 12/24/18 Clindamycin HCl [Clindamycin 300MG 300 mg PO TID #21 capsule 04/08/19 CAP] Naproxen 375 mg PO BID #20 tablet 04/08/19 Propranolol HCl 10 mg PO DAILY #30 tablet 04/08/19 - Allergies Allergies/Adverse Reactions: Allergies Allergy/AdvReac Type Severity Reaction Status Date / Time No Known Drug Allergies Allergy Verified 09/06/20 22:50 - Living Situation Living Situation: reports: With friend(s) Living Arrangement: reports: At home - Social History Does the pt smoke?: Yes Smoking Status: Current every day smoker Does the pt drink ETOH?: Yes Does the pt have substance abuse?: No Substance Use and Type: Marijuana (rarely uses cannibis) - Immunizations Immunizations are current?: Yes - POLST Patient has POLST: No PD ED PE NORMAL - Vitals Vital signs reviewed: Yes (BP mildly elevated and HR tachycardic 130s) - General General: Alert and oriented X 3, Well developed/nourished, Other (seems anxious but is pleasant and answers questions calmly) - HEENT HEENT: Moist mucous membranes, Pharynx benign - Neck Neck: Supple, no meningeal sign, No adenopathy, Thyroid normal - Cardiac Cardiac: No murmur. No: RRR (regular but tachycardic) - Respiratory Respiratory: Clear bilaterally - Abdomen Abdomen: Soft, Non tender - Derm Derm: Normal color, Warm and dry - Extremities Extremities: No tenderness to palpate, Normal ROM s pain, No edema, No calf tenderness / cord - Neuro Neuro: Alert and oriented X 3, No motor deficit, Normal speech - Psych Psych: Normal mood. No: Normal affect (anxious/scared) Results - Vitals Vitals: Vital Signs - 24 hr 09/06/20 09/06/20 09/06/20 22:24 22:40 22:45 Temperature 36.4 C L Heart Rate 133 H 133 H 130 H Respiratory 20 20 20 Rate Blood Pressure 143/92 H 140/98 H 126/86 H O2 Saturation 100 98 98 09/06/20 09/06/20 09/06/20 22:50 22:55 23:00 Temperature Heart Rate 120 H 119 H 118 H Respiratory Rate Blood Pressure 136/89 H 132/88 H 117/90 H O2 Saturation 09/06/20 09/06/20 09/06/20 23:15 23:30 23:59 Temperature 36.5 C Heart Rate 108 H 111 H 98 Respiratory 19 19 Rate Blood Pressure 134/95 H 128/96 H 132/98 H O2 Saturation 98 97 09/07/20 01:26 Temperature 36.5 C Heart Rate 88 Respiratory 18 Rate Blood Pressure 129/89 H O2 Saturation 98 Oxygen O2 Source Room air - EKG (time done) 22:28 Rate: Rate (enter#) (137) Rhythm: Sinus tachycardia [place]: Normal Intervals: Normal HI QRS: Normal Ischemia: Normal ST segments, ST depression (minimal anteriorly). No: ST elevation c/w ischemia - Labs Labs: Laboratory Tests 09/06/20 09/06/20 09/06/20 22:55 22:55 22:55 WBC 6.2 RBC 4.40 L Hgb 13.7 L Hct 39.2 L MCV 89.1 MCH 31.1 H MCHC 34.9 RDW 13.6 Plt Count 236 MPV 9.1 Neut # (Auto) 4.1 Lymph # (Auto) 1.5 [place] # (Auto) 0.4 Eos # (Auto) 0.1 Baso # (Auto) 0.0 Absolute Nucleated RBC 0.00 Nucleated RBC % 0.0 Sodium 135 Potassium 3.3 L Chloride 103 Carbon Dioxide 22 Anion Gap 10.0 BUN 13 Creatinine 1.1 Estimated GFR (MDRD) 73 L Glucose 255 H Calcium 8.3 L Magnesium 1.8 Total Bilirubin 1.3 H AST 35 ALT 66 H Alkaline Phosphatase 73 B-Natriuretic Peptide 29 Total Protein 5.9 L Albumin 3.6 Globulin 2.3 Albumin/Globulin Ratio 1.6 Lipase 27 TSH 09/06/20 22:55 WBC RBC Hgb Hct MCV MCH MCHC RDW Plt Count MPV Neut # (Auto) Lymph # (Auto) [place] # (Auto) Eos # (Auto) Baso # (Auto) Absolute Nucleated RBC Nucleated RBC % Sodium Potassium Chloride Carbon Dioxide Anion Gap BUN Creatinine Estimated GFR (MDRD) Glucose Calcium Magnesium Total Bilirubin AST ALT Alkaline Phosphatase B-Natriuretic Peptide Total Protein Albumin Globulin Albumin/Globulin Ratio Lipase TSH 1.52 - Rads (name of study) chest xray Radiology: Prelim report reviewed (no acute process), See rad report PD MEDICAL DECISION MAKING - ED course Complexity details: re-evaluated patient ( The patient has improved and heart rate and anxiousness with diltiazem as well as Ativan. It does sound likely had some episode of SVT after the marijuana use which is now down to sinus tachycardia.), considered differential (initial EMS rhythm strips likely SVT rate 170s. Subsequent appear sinus tach after the adenosine. Arrives here with apparent sinus tach 130s. Good BP. He appears anxious.), d/w patient ED course: His heart rate was tachycardic but did have some rate fluctuation 120s-130s, so not apparent flutter. It did decrease rate slowly with diltiazem and ativan, and he felt stepwise less anxious with small doses of Ativan. He is feeling much better. No further chest discomfort. He feels comfortable call for ride from his roommate. He states he is not going to take cannibis ever again. Departure - Departure Disposition: 01 Home, Self Care Clinical Impression: Drug side effects, SVT (supraventricular tachycardia), Anxiety Condition: Stable Record reviewed to determine appropriate education?: Yes Instructions: ED Tachycardia Pat PSVT Comments: By the EMS report and monitor strips, it does sound like the cannibis had a side effect of causing an irregular heart rhythm called SVT. This would be combined with and also trigger anxiety of course and that also contributed to your symptoms. Your heart rate and blood pressure seem improved now. I would certainly try to avoid cannabis. You should also avoid other stimulants such as excess caffeine or nicotine. These could also potentially trigger the fast heart rate episode as well. Continue usual medications. Stay well-hydrated. Return if episodes develop separate from cannabis use or with any regularity. Discharge Date/Time: 09/07/20 01:26
[2020-09-06 23:13] LABS: ALBUMIN 3.6 g/dL (3.2-5.5); ALBUMIN/GLOBULIN RATIO 1.6 (1.0-2.2); BILIRUBIN,TOTAL 1.3 mg/dL (0.2-1.0); CALCIUM 8.3 mg/dL (8.5-10.3); CREATININE 1.1 mg/dL (0.6-1.2); MAGNESIUM 1.8 mg/dL (1.7-2.8); POTASSIUM 3.3 mmol/L (3.5-5.0); TOTAL PROTEIN 5.9 g/dL (6.7-8.2)
[2020-09-06 23:19] LABS: BASOPHILS % (AUTO) 0.3 %; EOSINOPHILS # (AUTO) 0.1 10^3/uL (0.0-0.7); HCT - HEMATOCRIT 39.2 % (42.0-52.0); HGB - HEMOGLOBIN 13.7 g/dL (14.0-18.0); LYMPHOCYTES # (AUTO) 1.5 10^3/uL (1.5-3.5); LYMPHOCYTES % (AUTO) 24.8 %; MEAN CORPUSCULAR HEMOGLOBIN 31.1 pg (27.0-31.0); MEAN CORPUSCULAR HGB CONC 34.9 g/dL (32.0-36.0); MEAN CORPUSCULAR VOLUME 89.1 fL (80.0-94.0); MEAN PLATELET VOLUME 9.1 fL (7.4-11.4); MONOCYTES # (AUTO) 0.4 10^3/uL (0.0-1.0); MONOCYTES % (AUTO) 6.6 %; NEUTROPHILS # (AUTO) 4.1 10^3/uL (1.5-6.6); NEUTROPHILS % (AUTO) 66.8 %; PLT - PLATELET COUNT 236 10^3/uL (130-450); RED CELL DISTRIBUTION WIDTH 13.6 % (12.0-15.0); WHITE BLOOD COUNT 6.2 x10^3/uL (4.8-10.8)
[2020-09-07] MEDS ORDERED: LORazepam 2 MG/ML VIAL IVP STA (00:21)
[2020-09-07 01:27] VITALS: BP 129/89
--- NOTE | 2020-09-07 08:19 | XRAY Report ---
PROCEDURE: Chest 1 View X-Ray INDICATIONS: Chest Pain TECHNIQUE: One view of the chest was acquired. COMPARISON: Single view chest 04/07/2019 FINDINGS: Surgical changes and devices: None. Lungs and pleura: No pleural effusions or pneumothorax. Lungs are clear. Mediastinum: Mediastinal contours appear normal. Heart size is normal. Bones and chest wall: No suspicious bony lesions. Overlying soft tissues appear unremarkable. IMPRESSION: Normal for age, source of current symptoms is not seen. Reviewed by: Sen Mccall MD on 09/07/2020 8:18 AM PDT Approved by: Sen Mccall MD on 09/07/2020 8:18 AM PDT Station ID: [id number]
== END 2020-09-07 01:26 | disposition home or self-care (01) ==
LOC: EDUNIT# → ED 22:22
DX: F41.9 Anxiety disorder, unspecified (principal); T50.905A Adverse effect of unspecified drugs, medicaments and biological substances, initial encounter; I47.1 Supraventricular tachycardia; F17.200 Nicotine dependence, unspecified, uncomplicated
CPT/HCPCS: 36415; 71045; 80053; 83690; 83735; 83880; 84443; 85025; 93005; 96374; 96375; 96376; 99284; J2060

== ENCOUNTER 2020-11-12 14:40 | Emergency (ER) | payer MEDICAID ==
[2020-11-12 14:51] VITALS: BP 115/89
[2020-11-12] MEDS ORDERED: PROPRANOLOL 10 MG TABLET PO STA (14:54)
[2020-11-12] MEDS ORDERED: ALPRAZolam 0.25 MG TABLET PO STA (14:54)
--- NOTE | 2020-11-12 14:57 | ED Physician Documentation ---
PD HPI MHE - Stated complaint Stated Complaint: FIT - Chief complaint Chief Complaint: MHE - History obtained from History obtained from: Patient, Family - Additional information Additional information: 40-year-old gentleman with history of bipolar disorder, remote history of drug and alcohol use, brought in by [place] [employer] for mental health evaluation. History from the patient is as follows, he is run out of his Xanax and needs to be on propranolol. Because of that he was out of his mind and in a building where he was not supposed to be. He denies SI or HI or hallucinations. Again no recent drug or alcohol use. 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 Review of Systems Ten Systems: 10 systems reviewed and negative Constitutional: reports: Reviewed and negative Eyes: reports: Reviewed and negative Ears: reports: Reviewed and negative Nose: reports: Reviewed and negative Throat: reports: Reviewed and negative Cardiac: reports: Reviewed and negative PD PAST MEDICAL HISTORY - Past Medical History Cardiovascular: None Respiratory: None Neuro: None Endocrine/Autoimmune: None GI: None : None Psych: Anxiety, Bipolar disorder, Panic attacks - Past Surgical History Past Surgical History: Yes General: Appendectomy Ortho: Other - Present Medications Home Medications: Ambulatory Orders Medication Instructions Recorded Confirmed Quetiapine Fumarate 1 tab PO DAILY 10/01/17 Sucralfate 1 gm PO ACHS #120 tablet 10/01/17 chlordiazePOXIDE [Librium] See Taper PO Q6H #15 capsule 10/01/17 raNITIdine [Zantac] 150 mg PO BID #60 tablet 10/01/17 traZODone [Desyrel] 100 mg PO DAILY 10/01/17 10/01/17 Acetaminophen 650 mg PO Q6HR #30 tablet 12/24/18 Ibuprofen 600 mg PO Q6H PRN #30 tablet 12/24/18 methocarbamoL [Robaxin-750] 750 mg PO TID PRN #10 tablet 12/24/18 Clindamycin HCl [Clindamycin 300MG 300 mg PO TID #21 capsule 04/08/19 CAP] Naproxen 375 mg PO BID #20 tablet 04/08/19 Propranolol HCl 10 mg PO DAILY #30 tablet 04/08/19 Alprazolam [Xanax] 1 mg PO DAILY 11/12/20 11/12/20 OLANZapine [Zyprexa] 1 tab PO DAILY 11/12/20 11/12/20 Propranolol [Inderal] 10 mg PO TID #60 tablet 11/12/20 QUEtiapine [SEROquel] 11/12/20 - Allergies Allergies/Adverse Reactions: Allergies Allergy/AdvReac Type Severity Reaction Status Date / Time No Known Drug Allergies Allergy Verified 11/12/20 14:51 - Social History Does the pt smoke?: Yes Smoking Status: Current every day smoker Does the pt drink ETOH?: Yes Does the pt have substance abuse?: No - Immunizations Immunizations are current?: Yes - POLST Patient has POLST: No PD ED PE NORMAL - Vitals Vital signs reviewed: Yes - General General: Alert and oriented X 3, Other (Mildly tachycardic and tremulous, slightly slurred speech, And some odd word finding difficulties for example when I asked him when he last used alcohol or drugs he replies "Ramanber" 18) - HEENT HEENT: PERRL, EOMI - Neck Neck: Supple, no meningeal sign, No bony TTP - Cardiac Cardiac: RRR, No murmur - Respiratory Respiratory: No respiratory distress, Clear bilaterally - Abdomen Abdomen: Normal bowel sounds, Soft, Non tender - Back Back: No CVA TTP, No spinal TTP - Derm Derm: Normal color, Warm and dry - Extremities Extremities: No edema, No calf tenderness / cord - Neuro Neuro: Alert and oriented X 3, No motor deficit, No sensory deficit, Normal speech Results - Vitals Vitals: Vital Signs - 24 hr 11/12/20 14:43 Temperature 37.3 C Heart Rate 119 H Respiratory 12 Rate Blood Pressure 115/89 H O2 Saturation 99 Oxygen O2 Source Room air - Labs Labs: Laboratory Tests 11/12/20 11/12/20 15:05 15:05 WBC 8.6 RBC 4.36 L Hgb 13.3 L Hct 37.9 L MCV 86.9 MCH 30.5 MCHC 35.1 RDW 13.6 Plt Count 266 MPV 8.4 Neut # (Auto) 6.1 Lymph # (Auto) 1.7 [place] # (Auto) 0.7 Eos # (Auto) 0.0 Baso # (Auto) 0.0 Absolute Nucleated RBC 0.00 Nucleated RBC % 0.0 Sodium 140 Potassium 3.8 Chloride 104 Carbon Dioxide 22 Anion Gap 14.0 H BUN 19 Creatinine 1.1 Estimated GFR (MDRD) 73 L Glucose 79 Calcium 9.0 Total Bilirubin 2.0 H AST 26 ALT 31 Alkaline Phosphatase 83 Total Protein 6.7 Albumin 4.3 Globulin 2.4 Albumin/Globulin Ratio 1.8 Lipase 17 L Salicylates < 6.0 Acetaminophen < 10 L Ethyl Alcohol < 5.0 PD MEDICAL DECISION MAKING - ED course ED course: 40-year-old gentleman here requesting refills of prescriptions specifically Xanax and Ritalin. Also would like some propranolol. Discussed with him that the foraminal propranolol is not unreasonable, but lost or stolen prescriptions of Xanax and Ritalin are not refillable. He was put on an PAIGE by [place] [employer] but he is cooperative and calm here. Was slightly agitated when he found out he was not receiving a prescription for Xanax though. Departure - Departure Disposition: 01 Home, Self Care Clinical Impression: Palpitations, Anxiety Condition: Good Record reviewed to determine appropriate education?: Yes Instructions: ED Panic Attack Prescriptions: Propranolol [Inderal] 10 mg PO TID #60 tablet Comments: As discussed, the emergency department cannot refill lost or stolen medications especially controlled substances such as Xanax and Ritalin. Return for new or worsening symptoms. Follow-up with your prescriber on Saturday to discuss. I am prescribing a very small dose of propranolol since you have had good luck with that in the past and your prescriber recommended it, and it is not a controlled substance.
[2020-11-12 15:10] LABS: BASOPHILS % (AUTO) 0.2 %; EOSINOPHILS % (AUTO) 0.2 %; HCT - HEMATOCRIT 37.9 % (42.0-52.0); HGB - HEMOGLOBIN 13.3 g/dL (14.0-18.0); LYMPHOCYTES # (AUTO) 1.7 10^3/uL (1.5-3.5); MEAN CORPUSCULAR HEMOGLOBIN 30.5 pg (27.0-31.0); MEAN CORPUSCULAR HGB CONC 35.1 g/dL (32.0-36.0); MEAN CORPUSCULAR VOLUME 86.9 fL (80.0-94.0); MEAN PLATELET VOLUME 8.4 fL (7.4-11.4); MONOCYTES # (AUTO) 0.7 10^3/uL (0.0-1.0); MONOCYTES % (AUTO) 8.2 %; NEUTROPHILS # (AUTO) 6.1 10^3/uL (1.5-6.6); NEUTROPHILS % (AUTO) 71.2 %; PLT - PLATELET COUNT 266 10^3/uL (130-450); RED BLOOD COUNT 4.36 10^6/uL (4.70-6.10); RED CELL DISTRIBUTION WIDTH 13.6 % (12.0-15.0); WHITE BLOOD COUNT 8.6 x10^3/uL (4.8-10.8)
[2020-11-12 15:28] LABS: ACETAMINOPHEN < 10 ug/mL (10-30); ALBUMIN 4.3 g/dL (3.2-5.5); ALBUMIN/GLOBULIN RATIO 1.8 (1.0-2.2); ALKALINE PHOSPHATASE 83 IU/L (42-121); ALT ALANINE AMINOTRANSFERASE 31 IU/L (10-60); AST ASPARTATE AMINOTRANSFERASE 26 IU/L (10-42); BUN - BLOOD UREA NITROGEN 19 mg/dL (6-20); CARBON DIOXIDE - CO2 22 mmol/L (21-32); CHLORIDE 104 mmol/L (101-111); CREATININE 1.1 mg/dL (0.6-1.2); ETOH - ETHANOL < 5.0 mg/dL; GFR - MDRD 73 (>89); GLUCOSE 79 mg/dL (70-100); LIPASE 17 U/L (22-51); POTASSIUM 3.8 mmol/L (3.5-5.0); SALICYLATE < 6.0 mg/dL; SODIUM 140 mmol/L (135-145); TOTAL PROTEIN 6.7 g/dL (6.7-8.2)
== END 2020-11-12 15:52 | disposition home or self-care (01) ==
LOC: ED 14:40
DX: F41.9 Anxiety disorder, unspecified (principal); R00.2 Palpitations; F31.9 Bipolar disorder, unspecified; F17.200 Nicotine dependence, unspecified, uncomplicated
CPT/HCPCS: 36415; 80053; 80307; 80320; 80329; 83690; 84443; 85025; 99283; A9270

== ENCOUNTER 2020-11-30 08:00 | Outpatient (CLI) | payer MEDICAID ==
[2020-11-30 18:14] LABS: CREATININE 1.2 mg/dL (0.6-1.2)
[2020-11-30 18:24] LABS: CALCIUM 9.1 mg/dL (8.5-10.3); POTASSIUM 3.9 mmol/L (3.5-5.0)
[2020-11-30 21:50] LABS: ESTIMATED AVERAGE GLUCOSE 108 mg/dL (70-100); HEMOGLOBIN A1c% 5.4 % (4.27-6.07)
== END 2020-11-30 23:59 | disposition home or self-care (01) ==
LOC: LAB.WCP 08:00
PROVIDERS: ATTEND Family Medicine
DX: R00.0 Tachycardia, unspecified (principal); R73.9 Hyperglycemia, unspecified
CPT/HCPCS: 36415; 80048; 83036